=== PATIENT | male | born 1955 | race Caucasian/White ===

== ENCOUNTER 2019-08-11 07:00 | Outpatient (CLI) | payer MEDICARE, OTHER ==
[2019-08-12 10:59] LABS: SARS-CoV-2 MS2 Positive; SARS-CoV-2 N Gene Negative; SARS-CoV-2 S Gene Negative; SARS-CoV-2 orf1ab Negative
== END 2019-08-11 07:01 | disposition home or self-care (01) ==
LOC: LABBT 07:00
PROVIDERS: ATTEND Surgery
DX: Z01.812 Encounter for preprocedural laboratory examination (principal); Z11.59 Encounter for screening for other viral diseases
CPT/HCPCS: 87635; U0003

== ENCOUNTER → 2019-08-13 | Day surgery (SDC) | payer MEDICARE | LOC: SDC 07:16 | PROVIDERS: ATTEND Surgery | DX: K21.9 Gastro-esophageal reflux disease without esophagitis (principal); K44.9 Diaphragmatic hernia without obstruction or gangrene; M19.90 Unspecified osteoarthritis, unspecified site; I10 Essential (primary) hypertension; Z79.899 Other long term (current) drug therapy | CPT/HCPCS: 91010 ==

== ENCOUNTER 2019-08-28 07:10 | Outpatient (CLI) | payer MEDICARE, OTHER ==
[2019-08-28 16:51] LABS: #Eosinphils 0.3 thou/uL (0.0-0.7); #Lymphocytes 1.6 thou/uL (1.20-3.40); #Monocytes 0.8 thou/uL (0.11-0.59); #Neutrophils 4.3 thou/uL (1.40-6.50); %Basophils 0.6 % (0.0-1.0); %Eosinophils 4.4 % (0.0-10.0); %Lymphocytes 22.5 % (21.0-51.0); %Monocytes 11.8 % (0.0-10.0); %Neutrophils 60.7 % (42.0-75.0); ALT (SGPT) 20 U/L (8-55); AST (SGOT) 21 U/L (5-34); Albumin 4.2 g/dL (3.4-4.8); Alkaline Phosphatase 54 U/L (40-110); Anion Gap 12 mmol/L (10-20); BUN (Urea Nitrogen) 15 mg/dL (8.4-25.7); Bilirubin, Total 0.5 mg/dL (0.2-1.2); Calc. Creatinine Clearance 0 mL/min (70-130); Calcium 8.9 mg/dL (7.8-10.44); Carbon Dioxide 24 mmol/L (23-31); Chloride 105 mmol/L (98-107); Estimated GFR-MDRD 81; Glucose 103 mg/dL (80-115); Hemoglobin 15.5 g/dL (14.0-18.0); Mean Corpuscular HGB CONC 33.4 g/dL (32.0-36.0); Mean Corpuscular Hemoglobin 33.6 pg (27.0-31.0); Mean Platelet Volume 8.2 fL (7.4-10.4); Platelet Count 197 thou/uL (130-400); Potassium 4.8 mmol/L (3.5-5.1); Protein, Total 7.2 g/dL (5.8-8.1); RBC Distribution Width 12.3 % (11.5-14.5); Red Blood Cell (RBC) Count 4.62 mill/uL (4.70-6.10); Sodium 136 mmol/L (136-145); White Blood Cell (WBC) Count 7.1 thou/uL (4.8-10.8)
[2019-08-29 12:16] LABS: SARS-CoV-2 MS2 Positive; SARS-CoV-2 N Gene Negative; SARS-CoV-2 S Gene Negative; SARS-CoV-2 orf1ab Negative
== END 2019-08-28 07:11 | disposition home or self-care (01) ==
LOC: LABBT 07:10
PROVIDERS: ATTEND Surgery
DX: Z01.818 Encounter for other preprocedural examination (principal); Z11.59 Encounter for screening for other viral diseases; K44.9 Diaphragmatic hernia without obstruction or gangrene; K21.9 Gastro-esophageal reflux disease without esophagitis
CPT/HCPCS: 80053; 85025; U0003; 87635; 93005; 93010

== ENCOUNTER 2019-09-01 10:03 | Day surgery (SDC) | payer MEDICARE ==
[2019-08-27 09:06] VITALS: BMI 24.3
[2019-09-01] MEDS ORDERED: Lidocaine 1% PF 5 ML VIAL ONE (10:52)
[2019-09-01] MEDS ORDERED: Esmolol 100 MG/10 ML VIAL ONE (10:52)
[2019-09-01] MEDS ORDERED: Metoprolol Tartrate 5 MG/5 ML VIAL ONE (10:52)
[2019-09-01] MEDS ORDERED: Rocuronium Bromide 10 MG/ML (10ML VIAL) ONE (10:52)
[2019-09-01] MEDS ORDERED: Metoclopramide HCl 10 MG/2 ML VIAL ONE (10:52)
[2019-09-01] MEDS ORDERED: Ondansetron PF 4 MG/2 ML Vial ONE (10:52)
[2019-09-01] MEDS ORDERED: Dexamethasone 20 MG/5 ML VIAL ONE (10:52)
[2019-09-01] MEDS ORDERED: PROPOFOL 200 MG/20 ML VIAL ONE (10:52)
[2019-09-01] MEDS ORDERED: Succinylcholine Chloride 20 MG/ML 10 ml SYRINGE FS ONE (10:52)
[2019-09-01] MEDS ORDERED: Ketorolac Tromethamine 30 MG/ML VIAL ONE (10:52)
[2019-09-01] MEDS ORDERED: Lidocaine 1% w/Epinephrine 1:100K 20 ML VIAL ONE (13:03)
[2019-09-01] MEDS ORDERED: Bupivacaine 0.25% HCL 30 ML VIAL ONE (13:03)
[2019-09-01] MEDS ORDERED: Famotidine/PF 20 mg/2ml Vial ONE (13:10)
[2019-09-01] MEDS ORDERED: Fentanyl 100 MCG/2 ML VIAL ONE ×3 (13:10→15:55)
[2019-09-01] MEDS ORDERED: SUGAMMADEX SODIUM 500 MG/5 ML VIAL ONE (13:10)
[2019-09-01] MEDS ORDERED: hydrALAZINE 20 MG/ML VIAL ONE (14:33)
[2019-09-01] MEDS ORDERED: PACU-Morphine 4MG/ML VIAL SLOW IVP PRN (14:54)
[2019-09-01] MEDS ORDERED: Promethazine HCl 25 MG/ML VIAL IM PRN ×4 (14:54→15:28)
[2019-09-01] MEDS ORDERED: Ondansetron HCl/PF 4 MG/2 ML Vial IVP PRN ×2 (14:54→15:28)
[2019-09-01] MEDS ORDERED: Promethazine HCl 25 MG/ML VIAL SLOW IVP PRN ×2 (14:54→15:28)
[2019-09-01] MEDS ORDERED: Meperidine HCl/PF 25 MG/ML VIAL ONE (15:09)
[2019-09-01] MEDS ORDERED: Meperidine HCl/PF 25 MG/ML VIAL SLOW IVP PRN (15:15)
[2019-09-01] MEDS ORDERED: hydrALAZINE 20 MG/ML VIAL SLOW IVP PRN (15:18)
[2019-09-01] MEDS ORDERED: Dextrose 50% Abboject 50 ML SYRINGE SLOW IVP PRN (15:18)
[2019-09-01] MEDS ORDERED: Ondansetron PF 4 MG/2 ML Vial IVP PRN ×2 (15:18→15:28)
[2019-09-01] MEDS ORDERED: Hydrocodone-Acetamin 15 ML UDCUP PO PRN ×2 (15:18→15:38)
[2019-09-01] MEDS ORDERED: diphenhydrAMINE 50 MG/ML VIAL IVP PRN ×2 (15:18→15:28)
[2019-09-01] MEDS ORDERED: Dextrose 5% in Water 1,000 ML IV PRN (15:18)
[2019-09-01] MEDS ORDERED: diphenhydrAMINE 25 MG CAP PO PRN (15:28)
[2019-09-01] MEDS ORDERED: Zolpidem Tartrate 5 MG TAB PO PRN (15:28)
[2019-09-01] MEDS ORDERED: Naloxone HCl 0.4 mg/ml Vial IV PRN (15:28)
[2019-09-01] MEDS ORDERED: fentaNYL Citrate/PF 2,000 MCG in Sodium Chloride 0.9% 60 ML IV PRN (15:28)
[2019-09-01] MEDS ORDERED: diphenhydrAMINE 50 MG/ML VIAL IM PRN (15:28)
[2019-09-01] MEDS ORDERED: Communication Order-Pharmacy FS SCH (15:30)
[2019-09-01] MEDS ORDERED: D5 1/2 NS w/20 mEq KCL 1,000 ML ONE (15:33)
--- NOTE | 2019-09-01 16:15 | OP ---
DATE OF PROCEDURE: 09/01/2019 PREOPERATIVE DIAGNOSIS: Hiatal hernia with reflux. PROCEDURES PERFORMED: 1. Laparoscopic hiatal hernia repair with Carlos fundoplication. 2. Esophagogastroduodenoscopy. INDICATIONS: A 64-year-old male, who has been having severe reflux and chest pain. EGD showed hiatal hernia with reflux esophagitis. His manometry is fine. FINDINGS: He had about 4-cm sliding hiatal hernia. The esophagus came down nicely without tension. A 40-Hebrew bougie was used. DESCRIPTION OF PROCEDURE: After informed consent was obtained, the patient was taken to the operating room, given general endotracheal anesthesia, placed in the supine position. Abdomen was prepped and draped in usual fashion. Local anesthesia was infiltrated subcutaneously and deep. A 5-mm incision was performed just to the left of the midline. A Veress needle inserted. Drop test performed. Pneumoperitoneum was created to a volume of 2 L of carbon dioxide. Utilizing a bladeless 5-mm trocar and 0-degree laparoscope, a direct visual entry into the abdominal cavity was performed. Pneumoperitoneum was created to a pressure of 15 mmHg. The patient was placed in steep reverse Trendelenburg position. Chucho liver retractor inserted. Left lobe of the liver retracted superiorly. A 5-mm port was placed just to the left of the falciform and an 8-mm port was placed left subcostal. Another 5-mm port was placed in the left lateral. The hiatus was identified. The gastrophrenic ligament was divided utilizing the LigaSure. The peritoneum opened anteriorly with LigaSure. The left crura defined with LigaSure. Right crura defined with LigaSure. Then, the short gastrics were taken down utilizing the LigaSure. Posterior dissection was performed. The hiatal hernia and esophagus were easily reduced and held in place with a Trin[place] drain. Then, a posterior crural plication was performed over a 40-Hebrew bougie utilizing 0 Ethibond and Sew-Right and Tie-Knot device interruptedly. Then, the fundus was grasped and brought to the right side of the stomach. The left fundus was sutured to the esophagus and into the right fundus utilizing 2-0 silk suture tied intracorporeally, three of these were used. Then, intraoperative endoscopy was performed. The video endoscope was inserted under direct vision and advanced into the stomach. Stomach insufflated with air. The scope was retroflexed. The wrap was inspected. There was no torsion, no paraesophageal component and no air leak. The stomach decompressed. Scope removed. Trocars and retractors removed. The skin closed with interrupted 4-0 Rapide. Dermabond applied. The patient tolerated the procedure well, transferred to Recovery in good condition. Sponge and needle count verified correct x2. Job ID: [id number]
[2019-09-01] MEDS: D5 1/2 NS w/20 mEq KCL 1,000 ML IV SCH (17:56)
[2019-09-01] MEDS ORDERED: CEFAZOLIN 2 GM in Premix Bag 1 BAG IVPB SCH (18:00)
[2019-09-01] MEDS ORDERED: Ketorolac Tromethamine 30 MG/ML VIAL IVP SCH ×2 (18:00)
[2019-09-01] MEDS: CEFAZOLIN 2 GM in Premix Bag 1 BAG IVPB SCH (21:22)
[2019-09-01] MEDS: Ketorolac Tromethamine 30 MG/ML VIAL IVP SCH (21:26)
[2019-09-02] MEDS: D5 1/2 NS w/20 mEq KCL 1,000 ML IV SCH ×2 (00:51→09:21)
[2019-09-02] MEDS: Ketorolac Tromethamine 30 MG/ML VIAL IVP SCH ×2 (02:25→09:20)
[2019-09-02] MEDS: CEFAZOLIN 2 GM in Premix Bag 1 BAG IVPB SCH (03:04)
[2019-09-02 05:52] LABS: #Lymphocytes 0.9 thou/uL (1.20-3.40); #Monocytes 0.9 thou/uL (0.11-0.59); #Neutrophils 7.9 thou/uL (1.40-6.50); %Basophils 0.2 % (0.0-1.0); %Eosinophils 0.4 % (0.0-10.0); %Lymphocytes 8.8 % (21.0-51.0); %Monocytes 9.4 % (0.0-10.0); %Neutrophils 81.2 % (42.0-75.0); Hemoglobin 14.5 g/dL (14.0-18.0); Mean Corpuscular HGB CONC 33.8 g/dL (32.0-36.0); Mean Corpuscular Hemoglobin 34.2 pg (27.0-31.0); Mean Platelet Volume 7.5 fL (7.4-10.4); Platelet Count 179 thou/uL (130-400); Red Blood Cell (RBC) Count 4.24 mill/uL (4.70-6.10); White Blood Cell (WBC) Count 9.8 thou/uL (4.8-10.8)
[2019-09-02 06:10] LABS: Anion Gap 11 mmol/L (10-20); BUN (Urea Nitrogen) 9 mg/dL (8.4-25.7); Calc. Creatinine Clearance 80 mL/min (70-130); Calcium 8.5 mg/dL (7.8-10.44); Carbon Dioxide 25 mmol/L (23-31); Chloride 105 mmol/L (98-107); Estimated GFR-MDRD 81; Glucose 137 mg/dL (80-115); Potassium 4.8 mmol/L (3.5-5.1); Sodium 136 mmol/L (136-145)
--- NOTE | 2019-09-02 08:48 | PDOC.BPN ---
- Brief Progress Note Mr. Smart is a 64 year old Male who is 1 day post op fundoplication. Pt says he is doing well overall. Pt denies nausea, vomiting, and pain. Pt is currently set on an ice diet, which he is handling it well. Spirometer level up to 1999. Physical exam shows mild abdominal distension, absent bleeding from incisions sites, and glue still intact. Vital Signs (unremarkable except below) 09/02/19 07:37 Blood Pressure 156/95 H [Semi-Fowlers] O2 Sat by Pulse 94 L Oximetry Laboratory Tests 09/02/19 09/02/19 05:31 05:31 RBC 4.24 L MCV 101.0 H Neutrophils % 81.2 H Glucose 137 H
[2019-09-02] MEDS ORDERED: Enoxaparin Sodium 40 MG/0.4 ML SYRINGE SC SCH (09:00)
[2019-09-02] MEDS ORDERED: Pantoprazole 40 MG VIAL IVP SCH (09:00)
[2019-09-02 11:50] VITALS: BP 160/93; TEMP 97.5
--- NOTE | 2019-09-02 14:52 | RAD ---
Upper GI series single column: 09/02/2019 HISTORY: 64-year-old male status post hiatal hernia repair and bariatric surgery. TECHNIQUE: Patient swallowed 15 mL of Gastrografin while upright. Brief, intermittent fluoroscopy. FINDINGS: Contrast material flows through the narrowed gastric channel at an appropriate right, and enters the proximal duodenum. No extravasation or obstruction. IMPRESSION: 1.) Recently status post vertical sleeve gastrectomy. 2) no complications
--- NOTE | 2019-09-03 02:45 | DIS ---
DATE OF ADMISSION: 09/01/2019 DATE OF DISCHARGE: 09/02/2019 DISCHARGE DIAGNOSES: Hiatal hernia with reflux. PROCEDURES DURING ADMISSION: Laparoscopic hiatal hernia repair and Carlos fundoplication, intraoperative esophagogastroscopy, and postoperative Gastrografin swallow. HOSPITAL COURSE: The patient was admitted, taken to the operating room and underwent repair of this hernia. Postoperatively, he has done well. His x-ray is fine. He started on liquids. He is tolerating well. He is discharged home on hydrocodone and Zofran. He will follow up with me in 2 weeks. Job ID: [id number]
== END 2019-09-02 11:58 | disposition home or self-care (01) ==
LOC: SDC 10:03 → SURG A 15:21 → SDC 09-02 11:58
PROVIDERS: ATTEND Surgery
PROC: 0DV44ZZ Restriction of Esophagogastric Junction, Percutaneous Endoscopic Approach (ICD-10-PCS; principal; 2019-09-01)
PROC: 0DJ08ZZ Inspection of Upper Intestinal Tract, Via Natural or Artificial Opening Endoscopic (ICD-10-PCS; 2019-09-01)
DX: K44.9 Diaphragmatic hernia without obstruction or gangrene (principal); K21.0 Gastro-esophageal reflux disease with esophagitis; M19.90 Unspecified osteoarthritis, unspecified site; I10 Essential (primary) hypertension; Z79.899 Other long term (current) drug therapy
CPT/HCPCS: 43280; 74240; 80048; 85025; 94760; 97139; J3010; 36415; C9113; J0360; J0690; J1100; J1650; J1885; J2001; J2175; J2405; J2704; J2765; J3480; J3490; S0020; S0028

== ENCOUNTER 2019-12-07 11:29 | Outpatient (CLI) | payer MEDICARE, OTHER ==
[2019-12-08 13:25] LABS: SARS-CoV-2 MS2 Positive; SARS-CoV-2 N Gene Negative; SARS-CoV-2 S Gene Negative; SARS-CoV-2 by NAA Not Detected (NotDetected); SARS-CoV-2 orf1ab Negative
== END 2019-12-07 11:30 | disposition home or self-care (01) ==
LOC: LABSCS 11:29
PROVIDERS: ATTEND Surgery
DX: Z20.828 Contact with and (suspected) exposure to other viral communicable diseases (principal)
CPT/HCPCS: 87635; U0003

== ENCOUNTER 2019-12-10 10:23 | Outpatient (CLI) | payer MEDICARE ==
--- NOTE | 2019-12-10 11:50 | RAD ---
Barium swallow: 12/10/2019 COMPARISON: None HISTORY: Difficulty swallowing, assess for hiatal hernia FINDINGS: The plc programmer radiograph demonstrates extensive postoperative hardware of the lower cervical sp ine and the majority of the thoracic spine. There is postoperative hardware associated with multiple lateral left-sided ribs. A double contrast barium swallow was performed. The upper and midesophagus demonstrate no focal abnormality. There is a smooth area of relative narrowing involving the distal esophagus just proximal to the pa roesophageal junction. The patient ingested a barium tablet which traversed this area without delay. There is a moderately prominent paraesophageal hiatal hernia noted which appears to be located primarily posteriorly and to the right of the distal esophagus. The paraesophageal hernia fills with contrast media which then demonstrates prominent reflux to the level of the thoracic inlet when the patient is in the prone and supine positions. Delayed transit of the contrast media from the distal esophagus into the stomach may in part be secondary to mass effect from the paraesophageal her sadia. Exposure data: 2.3 minutes of fluoroscopic time IMPRESSION: Moderate-sized paraesophageal hernia with associated gastroesophageal reflux to the level of the thoracic inlet.
== END 2019-12-10 10:24 | disposition home or self-care (01) ==
LOC: RAD 10:23
PROVIDERS: ATTEND Surgery
DX: R13.10 Dysphagia, unspecified (principal); K44.9 Diaphragmatic hernia without obstruction or gangrene; K21.9 Gastro-esophageal reflux disease without esophagitis
CPT/HCPCS: 74220

== ENCOUNTER 2019-12-18 06:49 | Outpatient (CLI) | payer MEDICARE ==
[2019-12-18 13:53] LABS: #Eosinphils 0.2 thou/uL (0.0-0.7); #Lymphocytes 1.8 thou/uL (1.20-3.40); #Monocytes 0.7 thou/uL (0.11-0.59); #Neutrophils 4.3 thou/uL (1.40-6.50); %Basophils 0.5 % (0.0-1.0); %Eosinophils 3.4 % (0.0-10.0); %Lymphocytes 25.6 % (21.0-51.0); %Monocytes 9.9 % (0.0-10.0); %Neutrophils 60.6 % (42.0-75.0); Mean Corpuscular HGB CONC 34.3 g/dL (32.0-36.0); Mean Corpuscular Hemoglobin 34.2 pg (27.0-31.0); Mean Corpuscular Volume 99.7 fL (78.0-98.0); Mean Platelet Volume 8.2 fL (7.4-10.4); Platelet Count 194 thou/uL (130-400); RBC Distribution Width 12.2 % (11.5-14.5); Red Blood Cell (RBC) Count 4.97 mill/uL (4.70-6.10); White Blood Cell (WBC) Count 7.1 thou/uL (4.8-10.8)
[2019-12-18 14:07] LABS: ALT (SGPT) 22 U/L (8-55); AST (SGOT) 22 U/L (5-34); Albumin 4.5 g/dL (3.4-4.8); Alkaline Phosphatase 60 U/L (40-110); Anion Gap 13 mmol/L (10-20); BUN (Urea Nitrogen) 13 mg/dL (8.4-25.7); Bilirubin, Total 0.7 mg/dL (0.2-1.2); Calc. Creatinine Clearance 0 mL/min (70-130); Calcium 9.3 mg/dL (7.8-10.44); Carbon Dioxide 26 mmol/L (23-31); Chloride 104 mmol/L (98-107); Estimated GFR-MDRD 81; Globulin 3.2 g/dL (2.4-3.5); Glucose 101 mg/dL (80-115); Potassium 4.6 mmol/L (3.5-5.1); Protein, Total 7.7 g/dL (5.8-8.1); Sodium 138 mmol/L (136-145)
[2019-12-18 19:43] LABS: SARS-CoV-2 MS2 Positive; SARS-CoV-2 N Gene Negative; SARS-CoV-2 S Gene Negative; SARS-CoV-2 by NAA Not Detected (NotDetected); SARS-CoV-2 orf1ab Negative
--- NOTE | 2019-12-22 14:15 | EKG ---
Test Reason : Blood Pressure : / mmHG Vent. Rate : 075 BPM Atrial Rate : 075 BPM P-R Int : 140 ms QRS Dur : 092 ms QT Int : 374 ms P-R-T Axes : 067 072 062 degrees QTc Int : 417 ms Normal sinus rhythm Possible Left atrial enlargement Septal infarct , age undetermined cannot be excluded Abnormal ECG Confirmed by DILIA SOMEMR ([id number]) on 12/22/2019 2:15:13 PM Referred By: DR CHAIREZ Confirmed By:DILIA SOMMER
== END 2019-12-18 06:50 | disposition home or self-care (01) ==
LOC: LABBT 06:49
PROVIDERS: ATTEND Surgery
DX: Z01.818 Encounter for other preprocedural examination (principal); Z20.828 Contact with and (suspected) exposure to other viral communicable diseases; K44.9 Diaphragmatic hernia without obstruction or gangrene
CPT/HCPCS: 80053; 85025; 93005; U0003; 87635; 93010

== ENCOUNTER 2019-12-23 09:57 | Inpatient (IN) | payer MEDICARE ==
[2019-12-21 10:35] VITALS: BMI 22.5
[~2019-12-23 09:57] MED LIST: Dexamethasone 20 MG/5 ML VIAL ONE; Glycopyrrolate 0.2 MG/ML 5 ML SYRINGE ONE; Ketorolac Tromethamine 30 MG/ML VIAL ONE; Labetalol HCl 100 MG/20 ML VIAL ONE; Lidocaine 1% PF 5 ML VIAL ONE; Ondansetron PF 4 MG/2 ML Vial ONE; PHENYLEPHRINE-NS 100 MCG/ML 10 ML SYRINGE ONE; PROPOFOL 200 MG/20 ML VIAL ONE; Rocuronium Bromide 10 MG/ML (10ML VIAL) ONE
[2019-12-23] MEDS ORDERED: Fentanyl 100 MCG/2 ML VIAL ONE ×3 (11:52→15:08)
[2019-12-23] MEDS ORDERED: Midazolam HCl 2 mg/2 ml Vial ONE (11:52)
[2019-12-23] MEDS ORDERED: Bupivacaine/Epinephrine 0.25% 30 ML VIAL ONE (12:02)
[2019-12-23] MEDS ORDERED: Ondansetron HCl/PF 4 MG/2 ML Vial IVP PRN (14:27)
[2019-12-23] MEDS ORDERED: Promethazine HCl 25 MG/ML VIAL IM PRN ×3 (14:27→15:35)
[2019-12-23] MEDS ORDERED: PACU-Morphine 4MG/ML VIAL SLOW IVP PRN (14:27)
[2019-12-23] MEDS ORDERED: Promethazine HCl 25 MG/ML VIAL SLOW IVP PRN (14:27)
[2019-12-23] MEDS ORDERED: Dextrose 50% Abboject 50 ML SYRINGE SLOW IVP PRN (15:15)
[2019-12-23] MEDS ORDERED: Ondansetron PF 4 MG/2 ML Vial IVP PRN ×2 (15:15→15:35)
[2019-12-23] MEDS ORDERED: diphenhydrAMINE 50 MG/ML VIAL IVP PRN ×2 (15:15→15:35)
[2019-12-23] MEDS ORDERED: Hydrocodone-Acetamin 15 ML UDCUP PO PRN (15:15)
[2019-12-23] MEDS ORDERED: hydrALAZINE 20 MG/ML VIAL SLOW IVP PRN (15:15)
[2019-12-23] MEDS ORDERED: Dextrose 5% in Water 1,000 ML IV PRN (15:15)
[2019-12-23] MEDS ORDERED: Naloxone HCl 0.4 mg/ml Vial IV PRN (15:35)
[2019-12-23] MEDS ORDERED: diphenhydrAMINE 50 MG/ML VIAL IM PRN (15:35)
[2019-12-23] MEDS ORDERED: diphenhydrAMINE 25 MG CAP PO PRN (15:35)
[2019-12-23] MEDS ORDERED: Zolpidem Tartrate 5 MG TAB PO PRN (15:35)
[2019-12-23] MEDS ORDERED: fentaNYL Citrate/PF 2,000 MCG in Sodium Chloride 0.9% 60 ML IV PRN (15:35)
--- NOTE | 2019-12-23 15:44 | RAD ---
PORTABLE CHEST 1 VIEW: Date: 12/23/2019 Time: 1455 hours HISTORY: Hiatal hernia repair. FINDINGS: The heart size is borderline. No lobar consolidation, pneumothoraces, steve pulmonary edema, or pleur al effusions are seen. There are postop changes and metallic hardware in the spine and left ribs. IMPRESSION: No acute process. POS: AH
[2019-12-23] MEDS ORDERED: Communication Order-Pharmacy FS SCH (15:45)
[2019-12-23] MEDS: Ketorolac Tromethamine 30 MG/ML VIAL IVP SCH (18:43)
[2019-12-23] MEDS: D5 1/2 NS w/20 mEq KCL 1,000 ML IV SCH (18:44)
[2019-12-23] MEDS: CEFAZOLIN 2 GM in Premix Bag 1 BAG IVPB SCH (18:51)
--- NOTE | 2019-12-23 20:55 | OP ---
DATE OF PROCEDURE: 12/23/2019 PREOPERATIVE DIAGNOSIS: Recurrent paraesophageal hiatal hernia. PROCEDURE PERFORMED: Laparoscopic revisional repair of recurrent paraesophageal hiatal hernia. INDICATIONS FOR PROCEDURE: This is a 64-year-old male who had a large hiatal hernia repair done about 6 months ago, who developed recurrent dysphagia. Barium swallow showed a paraesophageal hernia, which was fairly large. FINDINGS: Very difficult operation, extreme scar tissue in the hiatus. It took a long time to dissect out the stomach from the chest and then once it was all dissected out, the wrap was still intact. It had also prolapsed into the chest somewhat. I was concerned about possible pneumothorax. We did a chest x-ray at the end, which was negative findings. DESCRIPTION OF PROCEDURE: After informed consent was obtained, the patient was taken to the operating room, given general endotracheal anesthesia, placed in supine position. His abdomen was prepped and draped in usual fashion. Local anesthesia was infiltrated subcutaneously and deep. A 5-mm incision was performed approximately 8 inches below the xiphoid slightly to left. Veress needle was inserted. Drop test performed. Pneumoperitoneum was created to a volume of 2 L of carbon dioxide. Utilizing a bladeless 12-mm trocar and 0-degree laparoscope, direct visual entry into the abdominal cavity was performed. Pneumoperitoneum was created to a pressure of 15 mmHg, and the patient was placed in steep reverse Trendelenburg position. Chucho liver retractor was inserted. Left lobe of the liver was retracted superiorly. The recurrent hiatal hernia was visualized at this point. A 5-mm port was placed just to the left of the falciform, 8 mm port placed further lateral, then another 5-mm port placed inferolateral. The part of the hernia reduced easily and then a lot of it was stuck up into his chest and with thick adhesions, so trying to differentiate tissue planes was very, very hard. It was a slow tedious dissection. Moving along the hiatal opening, the gastrophrenic ligament was open. The right crura were opened. The left crura were opened. Eventually, it was able to establish the posterior crural plane and a Florence drain was placed around the wrap basically. Then, this allowed further retraction for further dissection. It was high into the chest before I could clip enough adhesions to fully reduce the hernia as well as the stomach. Once it was reduced, intraoperative endoscopy was performed. I inspected everything, there was really no bleeding within the esophagogastric lumen. No blood noticed. No air leaks. So at this point, I did a posterior crural plication with a 0 Ethibond and a Sew-Right and Ti-KNOT device. Then, since the wrap was still intact, but I sewed 8 sutures circumferentially, suturing the wrap to the hiatus circumferentially to try and obliterate the space that potentially could allow recurrent paraesophageal hernia. Again scoped at the completion and did a retroflex. There was no paraesophageal component. There was no torsion. The stomach was decompressed. The scope was removed. Hemostasis was assured. Trocars and retractors were removed. The skin was closed with interrupted 4-0 Rapide. While in the operating room, performed a chest x-ray, portable, did not see any evidence of pneumothorax. The patient tolerated the procedure well, transferred to Recovery in good condition. Job ID: [id number]
[2019-12-24] MEDS: Ketorolac Tromethamine 30 MG/ML VIAL IVP SCH ×3 (00:05→11:37)
[2019-12-24] MEDS: D5 1/2 NS w/20 mEq KCL 1,000 ML IV SCH ×3 (00:28→13:40)
[2019-12-24] MEDS: CEFAZOLIN 2 GM in Premix Bag 1 BAG IVPB SCH (02:00)
[2019-12-24 06:49] LABS: #Lymphocytes 1.1 thou/uL (1.20-3.40); #Neutrophils 9.1 thou/uL (1.40-6.50); %Eosinophils 0.3 % (0.0-10.0); %Lymphocytes 9.7 % (21.0-51.0); Hemoglobin 13.6 g/dL (14.0-18.0); Mean Corpuscular HGB CONC 33.6 g/dL (32.0-36.0); Mean Corpuscular Hemoglobin 34.3 pg (27.0-31.0); Mean Platelet Volume 8.2 fL (7.4-10.4); Platelet Count 150 thou/uL (130-400); Red Blood Cell (RBC) Count 3.95 mill/uL (4.70-6.10); White Blood Cell (WBC) Count 11.3 thou/uL (4.8-10.8)
[2019-12-24 07:29] LABS: Anion Gap 10 mmol/L (10-20); BUN (Urea Nitrogen) 13 mg/dL (8.4-25.7); Calc. Creatinine Clearance 71 mL/min (70-130); Carbon Dioxide 26 mmol/L (23-31); Chloride 103 mmol/L (98-107); Estimated GFR-MDRD 76; Glucose 142 mg/dL (80-115); Potassium 4.4 mmol/L (3.5-5.1); Sodium 135 mmol/L (136-145)
[2019-12-24] MEDS ORDERED: Enoxaparin Sodium 40 MG/0.4 ML SYRINGE SC SCH (09:00)
[2019-12-24] MEDS ORDERED: Pantoprazole 40 MG VIAL IVP SCH (09:00)
--- NOTE | 2019-12-24 10:19 | RAD ---
XR UGI Single Contrast No Air History: Paraesophageal hernia repair Comparison: Upper GI examination September 02, 2019 Findings: 15 mL water-soluble contrast was administered via mouth. No evidence for leak. Moderate vol ume pneumoperitoneum. Impression: No evidence for leak.
[2019-12-24] MEDS ORDERED: Iopamidol-M 300 61% 15 ML VIAL ONE (13:12)
[2019-12-24] MEDS ORDERED: Diabetic Tussin 200 MG/10 ML UDCUP PO PRN (14:14)
[2019-12-24 16:20] VITALS: BP 165/83; TEMP 98.5
--- NOTE | 2019-12-25 11:30 | DIS ---
DATE OF ADMISSION: 12/23/2019 DATE OF DISCHARGE: 12/24/2019 DISCHARGE DIAGNOSIS: Recurrent paraesophageal hiatal hernia. PROCEDURES DURING ADMISSION: Laparoscopic recurrent paraesophageal hiatal hernia repair, intraoperative esophagogastroscopy. HOSPITAL COURSE: The patient was admitted, taken to the operating room. It was a very difficult surgery. Postoperatively, he has done well. He is tolerating full liquids well. He did a swallow study and it looked like everything is okay. He is discharged home on hydrocodone and Zofran, and he will follow up with me in 2 weeks. Job ID: [id number]
== END 2019-12-24 17:07 | disposition home or self-care (01) | DRG 328 ==
LOC: SDC 09:57 → SURG A 15:15
PROVIDERS: ADMIT Surgery; ATTEND Surgery
PROC: 0BQT4ZZ Repair Diaphragm, Percutaneous Endoscopic Approach (ICD-10-PCS; principal; 2019-12-23)
PROC: 0DJ68ZZ Inspection of Stomach, Via Natural or Artificial Opening Endoscopic (ICD-10-PCS; 2019-12-23)
DX: K44.9 Diaphragmatic hernia without obstruction or gangrene (principal); M19.90 Unspecified osteoarthritis, unspecified site; I10 Essential (primary) hypertension; E78.00 Pure hypercholesterolemia, unspecified; Z79.899 Other long term (current) drug therapy
CPT/HCPCS: 71045; 74240; 80048; 85025; C9113; J0690; J1100; J1650; J1885; J2250; J2405; J2704; J3010; J3480; Q9967